=== PATIENT | male | born 1955 | race African-American/Black ===

== ENCOUNTER 2021-04-04 14:42 | Emergency (ER) | payer SELFPAY ==
[~2021-04-04] VITALS: Ht 182.9 cm; Wt 80.0 kg
[2021-04-04] MEDS ORDERED: HYDR-4001 MT (15:06)
[2021-04-04] MEDS ORDERED: MORPHINE SULFATE 4 MG/ML CPJ (NOT FOR IM USE) IV ONE (15:15)
[2021-04-04] MEDS ORDERED: ONDANSETRON 4MG ODT PO ONE (15:15)
[2021-04-04 16:00] VITALS: BP 135/89
== END 2021-04-04 16:06 | disposition home or self-care (01) ==
LOC: ER 14:42
DX: M54.5 Low back pain (principal); Z95.5 Presence of coronary angioplasty implant and graft
CPT/HCPCS: 96374; 99283; J2270; Q0162